=== PATIENT | female | born 1945 | race Hispanic/Latino ===

== ENCOUNTER → 2019-07-03 | Outpatient (CLI) | payer OTHER, MEDICARE ==
[~2019-07-03] MED LIST: BENA20TA10 PO; CA C1TAB95 PO; FOLI-74 PO; ZYRT; [UNRECOGNIZED DRUG - REMARK] PO
== END | disposition home or self-care (01) ==
LOC: RAH 10:32
PROVIDERS: ATTEND Internal Medicine Critical Care Medicine
DX: K76.89 Other specified diseases of liver (principal)
CPT/HCPCS: 76705

== ENCOUNTER → 2019-08-04 | Outpatient (CLI) | payer OTHER, MEDICARE ==
[~2019-08-04] MED LIST changes: +IOHEXOL 350 MG/ML 100ML INFUS..BTL IV ONE
== END | disposition home or self-care (01) ==
LOC: RAH 07:45
PROVIDERS: ATTEND Internal Medicine Gastroenterology
DX: K76.89 Other specified diseases of liver (principal)
CPT/HCPCS: 74170; Q9967

== ENCOUNTER → 2020-01-04 | Outpatient (CLI) | payer OTHER, MEDICARE ==
[~2020-01-04] MED LIST changes: -IOHEXOL 350 MG/ML 100ML INFUS..BTL IV ONE
== END | disposition home or self-care (01) ==
LOC: RAH 08:13
PROVIDERS: ATTEND Internal Medicine Gastroenterology
DX: K76.89 Other specified diseases of liver (principal); K77 Liver disorders in diseases classified elsewhere
CPT/HCPCS: 76700

== ENCOUNTER → 2020-12-09 | Outpatient (CLI) | payer OTHER, MEDICARE | END | disposition home or self-care (01) | LOC: OIH 14:41 | PROVIDERS: ATTEND Internal Medicine | DX: M19.071 Primary osteoarthritis, right ankle and foot (principal); M19.072 Primary osteoarthritis, left ankle and foot; M85.871 Other specified disorders of bone density and structure, right ankle and foot; M85.872 Other specified disorders of bone density and structure, left ankle and foot; M19.042 Primary osteoarthritis, left hand; M24.842 Other specific joint derangements of left hand, not elsewhere classified; M24.841 Other specific joint derangements of right hand, not elsewhere classified | CPT/HCPCS: 73630 ==

== ENCOUNTER → 2021-05-21 | Outpatient (CLI) | payer OTHER, MEDICARE | END | disposition home or self-care (01) | LOC: RAH 08:40 | PROVIDERS: ATTEND Internal Medicine Critical Care Medicine | DX: K76.89 Other specified diseases of liver (principal) | CPT/HCPCS: 76705 ==